=== PATIENT | male | born 1940 | race Caucasian/White ===

== ENCOUNTER 2018-02-11 09:48 | Outpatient (CLI) | payer MEDICARE, OTHER ==
[~2018-02-11 09:48] MED LIST: ASPI-10; FLO0.4C PO; HYDR-3965 PO; LISI10TA PO; METO25TA6 PO; NITR0.4T51 SL; SIMV40TA4 PO
[2018-02-11 10:31] LABS: BLOOD UREA NITROGEN 16 MG/DL (7-18); CREATININE 0.95 MG/DL (0.60-1.10); eGFR 77 ML/MIN
[2018-02-11] MEDS ORDERED: iohexol 300mg/ml 100ml inj. ONE (10:41)
== END 2018-02-11 23:59 | disposition home or self-care (01) ==
LOC: 64 CT 09:48
PROVIDERS: ATTEND Surgery
DX: N28.1 Cyst of kidney, acquired (principal); K76.89 Other specified diseases of liver; K57.30 Diverticulosis of large intestine without perforation or abscess without bleeding; Z79.82 Long term (current) use of aspirin; Z87.891 Personal history of nicotine dependence
CPT/HCPCS: 36415; 74177; 82565; 84520; J7030; Q9967